=== PATIENT | male | born 1985 | race Caucasian/White ===

== ENCOUNTER 2016-08-29 12:23 | Emergency (ER) | payer OTHER | END 2016-08-29 16:35 | disposition home or self-care (01) | LOC: ER 12:23 | PROC: 0HQ0XZZ Repair Scalp Skin, External Approach (ICD-10-PCS; principal; 2016-08-29) | DX: S01.01XA Laceration without foreign body of scalp, initial encounter (principal); F17.200 Nicotine dependence, unspecified, uncomplicated; W22.8XXA Striking against or struck by other objects, initial encounter | CPT/HCPCS: 70450; 96372; 99284; J1170 ==